=== PATIENT | female | born 1980 | race Caucasian/White ===

== ENCOUNTER 2019-06-17 13:46 | Emergency (ER) | payer BC ==
[~2019-06-17] VITALS: Ht 160 cm; Wt 69.9 kg
[2019-06-17 14:02] VITALS: BP_SYST 141
--- NOTE | 2019-06-17 14:38 | NUR ---
MSE completed by myself.
[2019-06-17] MEDS ORDERED: DEXAMETHASONE SOD PHOSPHATE 10 MG/ML VIAL IM ONE (14:45)
[2019-06-17] MEDS ORDERED: PENICILLIN G BENZATHINE 1.2 MMU/2 ML SYR IM ONE (14:45)
--- NOTE | 2019-06-17 15:00 | NUR ---
Patient to ER bed H1 to gown for evaluation. Side rails up.
--- NOTE | 2019-06-17 15:10 | NUR ---
PT C/O L EAR PAIN L THROAT SWELLING.
--- NOTE | 2019-06-17 15:40 | NUR ---
PT TOLERATED MEDICATION WELL.
[2019-06-17 16:18] VITALS: BP_SYST 141
--- NOTE | 2019-06-17 16:18 | NUR ---
Patient given written and verbal discharge instructions and verbalizes understanding. ER MD discussed with patient the results and treatment provided. Patient in stable condition. ID arm band removed. Rx of given. Patient educated on pain management and to follow up with PMD. Pain Scale 0 Opportunity for questions provided and answered. Medication side effect fact sheet provided.
== END 2019-06-17 16:18 | disposition home or self-care (01) ==
LOC: SED 13:46
DX: J02.9 Acute pharyngitis, unspecified (principal); R03.0 Elevated blood-pressure reading, without diagnosis of hypertension
CPT/HCPCS: 36415; 81025; 86403; 87081; 96372; 99284; J0561; J1100

== ENCOUNTER 2023-04-23 23:21 | Emergency (ER) | payer BC ==
[~2023-04-23] VITALS: Ht 160 cm; Wt 72.6 kg
[2023-04-23 23:27] VITALS: BP_SYST 137; PULSE 79; RESP 20; TEMP 98.7; O2SAT 96
[2023-04-23] MEDS ORDERED: METH-776 PO (23:43)
[2023-04-23] MEDS ORDERED: DIPH25CA83 PO (23:43)
[2023-04-23] MEDS ORDERED: DEXAMETHASONE SOD PHOSPHATE 10 MG/ML VIAL IM ONE (23:45)
[2023-04-23 23:55] VITALS: BP_SYST 137; PULSE 79; RESP 20; TEMP 98.7; O2SAT 96
== END 2023-04-23 23:52 | disposition home or self-care (01) ==
LOC: SED 23:21
DX: L50.9 Urticaria, unspecified (principal); T78.49XA Other allergy, initial encounter; Z79.899 Other long term (current) drug therapy; X58.XXXA Exposure to other specified factors, initial encounter
CPT/HCPCS: 99283; 96372; J1100